=== PATIENT | male | born 1955 | race Caucasian/White ===

== ENCOUNTER 2021-05-25 08:28 | Emergency (ER) | payer MEDICAID, OTHER ==
[~2021-05-25] VITALS: Ht 182.9 cm; Wt 80.7 kg
[2021-05-25 10:06] VITALS: BP 139/96
== END 2021-05-25 10:31 | disposition home or self-care (01) ==
LOC: ER 08:28
DX: G43.909 Migraine, unspecified, not intractable, without status migrainosus (principal); I10 Essential (primary) hypertension
CPT/HCPCS: 70450; 93005

== ENCOUNTER 2025-08-03 11:00 | Outpatient (CLI) | payer OTHER, MEDICAID ==
--- NOTE | 2025-08-03 12:54 | DVHSR ---
APPROVED REPORT EXAM: Two-dimensional and M-mode echocardiogram with Doppler and color Doppler. DIMENSIONS LVDd 3.9 (3.8-5.7cm) LA (2D) 5.0 (1.9-4.0cm) Aortic Root 3.6 (2.0-3.7cm) LVDs 3.1 (2.5-4.0cm) LA (MM) (1.9-4.0cm) Aortic Cusp Exc 2.0 (1.5-2.0cm) EF (%) 43.0 (55-70%) Rt. Atrium 4.1 (1.9-4.0cm) Asc. Aorta cm IVSd 1.3 (0.7-1.1cm) RV (D) 5.5 (1.8-2.4cm) PWd 0.9 (0.7-1.1cm) Mitral Valve Mitral Mitral Stenosis E wave 0.09m/s MV Mean GR. mmHg A wave 0.78m/s MV Peak GR. 54mmHg E/A ratio 0.1 2D MVA cm2 DECEL Time 254ms PRESS 1/2 Time ms Aortic Valve Aortic Valve Aortic Stenosis V1 1.19m/s AO Mean GR. mmHg V2 1.39m/s AO Peak GR. 8mmHg LVOT Diameter 2.3 (1.8-2.4cm) Doppler CHRISTINA 3.56cm2 Pulmonic Valve V2 1.01m/s LEFT VENTRICLE The Left Ventricle is borderline dilated. The Ejection Fraction is 45%. RIGHT VENTRICLE The right ventricle is mildly dilated. ATRIA The left atrial size is normal. The right atrium size is normal. MITRAL VALVE The mitral valve is normal in structure and function. Mitral regurgitation is mild. PULMONIC VALVE The pulmonic valve is not well visualized. TRICUSPID VALVE The tricuspid valve is grossly normal. AORTIC VALVE The aortic valve opens well. No aortic regurgitation is present. GREAT VESSELS The aortic root is normal size. PERICARDIAL EFFUSION There is no pericardial effusion. Other Information Quality : Rhythm : PVC's Technically limited study due to body habitus. Conclusion EF 40% SEGMENTAL WALL MOTION ABNL MILD MR LAE
== END 2025-08-03 17:00 | disposition home or self-care (01) ==
LOC: Rad HDHVI 11:00
PROVIDERS: ATTEND Internal Medicine Cardiovascular Disease
DX: I34.0 Nonrheumatic mitral (valve) insufficiency (principal); R01.0 Benign and innocent cardiac murmurs
CPT/HCPCS: 93306

== ENCOUNTER 2025-08-04 08:23 | Outpatient (CLI) | payer OTHER, MEDICAID ==
[~2025-08-04] VITALS: Ht 182.9 cm; Wt 93.0 kg
--- NOTE | 2025-08-06 16:06 | DVHSR ---
APPROVED REPORT Exam: Nuclear Stress Test Indication: Chest pain Ht: 6 ft 0 in Wt: 205 lbs BSA: 2.15 m2 HR: 70 bpm BP: 119/79 mmHg BMI: 27.80 Rhythm: SR, PVCs Medical History Medical History: Hypercholesterolemia Medications: Atorvastatin Allergies: Dilantin Cardiac Risk Factors: Family Hx of CAD Stress Test Details Stress Test: Exercise stress testing was performed using a Young protocol. HR Resting HR: 70 bpm Max Heart Rate (APMHR): 152.664147 bpm Max HR Achieved: 137 bpm Target HR (85% APMHR): 129.306364 bpm % of APMHR: 90.13 Recovery HR: 100 bpm HR response to stress: Normal HR response to stress BP Resting BP: 119/79 mmHg Max BP: 214/105 mmHg Recovery BP: 127/104 mmHg BP response to stress: Exaggerated response ECG Resting ECG: Sinus Rhythm Stress ECG: Sinus Tachycardia Arrhythmia: PVCs, bigeminy PVCs, PVC couplets, PACs Recovery ECG: Sinus Rhythm, PVCs, bigeminy PVCs, PVC couplets, PACs Clinical Reason for Termination: Target HR achieved Stress Symptoms: brief episode of mild chest pain, lightheadedness, fatigue, dyspnea Exercise duration: 8 min 00 sec Exercise capacity: 10.10 METs All symptoms resolved during recovery. PVCs resolved with exercise, returned during recovery. Stress ECG Conclusion NON ISCHEMIC CLINICAL RESPONSE NON ISCHEMIC ECG RESPONSE NON ISCHEMIC CARDIOLITE IMAGES EF 40% NM EXAM: Myocardial Perfusion REST/STRESS Imaging Protocol: Rest Tc-99m/Stress Tc-99m 1 day Resting Data Rest SPECT myocardial perfusion imaging was performed in supine position 30 minutes following the intravenous injection of 10.62 mCi of Tc-99m Sestamibi. Time of rest injection: 834 Date: 08/04/2025 Time of rest imagin Date: 08/04/2025 Administration Route: IV Administration Site: Left AC Exercise Stress At peak stress, the patient was injected intravenously with 32.6 mCi of Tc-99m Sestamibi. Time of stress injection: 954 Date: 08/04/2025 Time of stress imagin Date: 08/04/2025 Administration Route: IV Administration Site: Left AC Heart Rate at time of stress injection: 137 bpm. Patient continued to exercise for 1 minute(s). Gated Stress SPECT was performed 15 minutes after stress injection. The images were gated to evaluate regional wall motion and calculate left ventricular ejection fraction. Comments Cardiolite injection at 6 minutes, 58 seconds into test. Nuclear Conclusion NON ISCHEMIC CLINICAL RESPONSE NON ISCHEMIC ECG RESPONSE NON ISCHEMIC CARDIOLITE IMAGES EF 40%
== END 2025-08-04 17:00 | disposition home or self-care (01) ==
LOC: Rad HDHVI 08:23
PROVIDERS: ATTEND Internal Medicine Cardiovascular Disease
DX: R00.0 Tachycardia, unspecified (principal); I49.3 Ventricular premature depolarization; I49.1 Atrial premature depolarization; R94.31 Abnormal electrocardiogram [ECG] [EKG]; R07.89 Other chest pain; E78.00 Pure hypercholesterolemia, unspecified; R01.1 Cardiac murmur, unspecified; Z13.6 Encounter for screening for cardiovascular disorders; Z82.49 Family history of ischemic heart disease and other diseases of the circulatory system
CPT/HCPCS: 78452; 93017; A9500; 96374